=== PATIENT | male | born 1965 | race Caucasian/White ===

== ENCOUNTER 2017-06-02 20:40 | Emergency (ER) | payer OTHER ==
[~2017-06-02] VITALS: Ht 182.9 cm; Wt 99.0 kg
[2017-06-02 20:42] VITALS: BP 133/75
[2017-06-02 22:28] LABS: BLOOD UREA NITROGEN 17 mg/dL (7-18)
[2017-06-02 22:32] LABS: IS PT STATUS REG ER OR PRE ER? YES
[2017-06-02] MEDS ORDERED: APAP/CODEINE 24/2.4MG/ML ELIXIR PO ONE (23:00)
[2017-06-02] MEDS ORDERED: DEXAMETHASONE 4 MG/ML, 1ML IM ONE (23:00)
[2017-06-02] MEDS ORDERED: DEXAMETHASONE 4 MG/ML, 5ML ONE (23:06)
== END 2017-06-02 23:19 | disposition home or self-care (01) ==
LOC: ED 22:50
DX: J20.9 Acute bronchitis, unspecified (principal)
CPT/HCPCS: 36415; 71020; 80048; 82040; 84484; 85025; 93005; 96372; 99285; J1100